=== PATIENT | female | born 1990 | race Caucasian/White ===

== ENCOUNTER 2016-06-14 13:50 | Emergency (ER) | payer SELFPAY | END 2016-06-14 14:23 | disposition home or self-care (01) | LOC: ER 13:50 | DX: F41.0 Panic disorder [episodic paroxysmal anxiety] (principal); Z88.0 Allergy status to penicillin; Z88.2 Allergy status to sulfonamides; Z88.5 Allergy status to narcotic agent ==

== ENCOUNTER 2016-06-19 12:28 | Emergency (ER) | payer SELFPAY | END 2016-06-19 12:54 | disposition home or self-care (01) | LOC: ER 12:28 | DX: F41.1 Generalized anxiety disorder (principal); F41.0 Panic disorder [episodic paroxysmal anxiety]; Z88.5 Allergy status to narcotic agent; Z88.0 Allergy status to penicillin; Z88.2 Allergy status to sulfonamides ==

== ENCOUNTER 2016-06-25 15:17 | Emergency (ER) | payer SELFPAY | END 2016-06-25 17:05 | disposition home or self-care (01) | LOC: ER 15:17 | DX: R07.2 Precordial pain (principal); F41.0 Panic disorder [episodic paroxysmal anxiety]; R51 Headache; K21.9 Gastro-esophageal reflux disease without esophagitis; E66.01 Morbid (severe) obesity due to excess calories; F32.9 Major depressive disorder, single episode, unspecified; Z87.442 Personal history of urinary calculi; Z90.49 Acquired absence of other specified parts of digestive tract; Z98.51 Tubal ligation status; Z79.899 Other long term (current) drug therapy; Z88.0 Allergy status to penicillin; Z88.2 Allergy status to sulfonamides; Z88.5 Allergy status to narcotic agent; Z68.41 Body mass index [BMI] 40.0-44.9, adult | CPT/HCPCS: 36415; 96374; 96375; J1200; J1885; J2765 ==

== ENCOUNTER 2016-07-12 22:15 | Emergency (ER) | payer SELFPAY | END 2016-07-13 01:03 | disposition home or self-care (01) | LOC: ER 22:15 | DX: R51 Headache (principal); R11.0 Nausea; F41.9 Anxiety disorder, unspecified; K21.9 Gastro-esophageal reflux disease without esophagitis; J45.909 Unspecified asthma, uncomplicated; Z87.442 Personal history of urinary calculi; Z90.49 Acquired absence of other specified parts of digestive tract; Z98.51 Tubal ligation status; Z79.899 Other long term (current) drug therapy; Z88.0 Allergy status to penicillin; Z88.2 Allergy status to sulfonamides; Z88.5 Allergy status to narcotic agent | CPT/HCPCS: 96372; J2550 ==

== ENCOUNTER 2016-07-20 13:24 | Emergency (ER) | payer SELFPAY | END 2016-07-20 13:50 | disposition home or self-care (01) | LOC: ER 13:24 | DX: B35.4 Tinea corporis (principal); F41.9 Anxiety disorder, unspecified; K21.9 Gastro-esophageal reflux disease without esophagitis; E66.01 Morbid (severe) obesity due to excess calories; Z90.49 Acquired absence of other specified parts of digestive tract; Z98.51 Tubal ligation status; Z87.442 Personal history of urinary calculi; Z79.899 Other long term (current) drug therapy; Z88.0 Allergy status to penicillin; Z88.2 Allergy status to sulfonamides; Z88.5 Allergy status to narcotic agent ==